=== PATIENT | female | born 1955 | race Caucasian/White ===

== ENCOUNTER 2023-05-16 10:58 | Inpatient (IN) | payer MEDICARE, MEDICAID ==
[~2023-05-16] VITALS: Ht 167.6 cm; Wt 73.8 kg
[~2023-05-16 10:58] MED LIST: ATENOLOL50 MG PO; CEPACOL SORE T1 EAC5 MM; GUAIFENESIN ER600 MG PO; HYDROCODON-ACE1 EAC8 PO; LEVOTHYROXINE112 MCG PO; LIPITOR40 MG PO; LOSARTAN-HCTZ1 EAC2 PO; MACROBID 100 M100 MG PO; PERCOCET 5-3251 EACH PO; SEROQUEL50 MG PO; TERBINAFINE15 GM TOP; TUSSIN COU15 MG/5 ML PO; TYLENOL325 MG PO; ZOFRAN ODT4 MG SL
[2023-05-16] MEDS ORDERED: ATENOLOL25 MG PO (11:28)
[2023-05-16 14:48] VITALS: BP 105/68
[2023-05-16 16:04] VITALS: BP 108/62
[2023-05-16 17:00] VITALS: BP 118/104
[2023-05-16 18:00] VITALS: BP 103/60
[2023-05-16 19:00] VITALS: BP 88/68
[2023-05-16 20:00] VITALS: BP 99/62
--- NOTE | 2023-05-16 22:14 | EKG ---
[facility] [address] [facility] [place] [address] Signed Normal sinus rhythm Nonspecific ST and T wave abnormality Abnormal ECG When compared with ECG of 24-JUN-2019 13:54, Nonspecific T wave abnormality no longer evident in Anterior leads QT has shortened Confirmed by Teddy Nogueira MD () on 05/16/2023 10:13:53 PM Electronically Signed By: TEDDY NOGUEIRA MD 05/16/23 2214 PATIENT NAME: MARI BAKER Electrocardiogram DATE OF : 53 PHYSICIAN: TEDDY NOGUEIRA MD REPORT #: [id number] REPORT IS CONFIDENTIAL AND NOT TO BE RELEASED WITHOUT AUTHORIZATION
[2023-05-17] VITALS (7 sets, daily range): BP systolic 80–102; BP diastolic 53–61
--- NOTE | 2023-05-17 05:29 | CONS ---
[facility] [address] [place], [place] [address] Signed DATE OF CONSULTATION: 05/16/2023 CHIEF COMPLAINT: Right groin pain. HISTORY OF PRESENT ILLNESS: Nitza is a 67-year-old female, who has been smoking at least half a pack of cigarettes a day for 40 years. She quit drinking heavily a couple years ago. She is a now and has one daughter. She still lives in her apartment and is able to drive. She had undergone a full hysterectomy last July and suspension of her bladder with good success. This last week, she was out pulling weeds and felt an increase in pain and swelling in mass that she has in her right groin. She has been now vomiting for a week. She had been to her primary care provider. She had downplayed the symptoms. Fortunately, a CT scan had been ordered. She does have the abdominal aortic aneurysm at 4.9 x 4.7 cm. She tells me she is aware of that, but has not seen a vascular surgeon. She also has a right femoral hernia containing small bowel with a small bowel obstruction. She also has a large hiatal hernia. The last 2 days, she has continued to have nausea and vomiting. She finally came to emergency room for evaluation. In the emergency room, she is not systemically ill or toxic. She certainly has an incarcerated mildly tender right femoral hernia. Her abdomen is moderately distended. White count is up at 11.7 and her sodium is low at 127 and her BUN and creatinine are elevated consistent with her acute renal failure. I have been called with respect to the above. An NG tube has been replaced with return of mostly clear gastric fluid. Horan catheter was inserted with return of small amount of clear yellow urine. She is receiving her second liter of IV fluids. Overall, she feels a little better. Her grand-daughter is with her. I have been asked to come see her here in the emergency room as a general surgeon on-call. PAST MEDICAL HISTORY: Osteoarthritis, hypertension, hypothyroidism, hyperlipidemia, depression, large hiatal hernia, and a right femoral hernia for at least 3 years if not more. PAST SURGICAL HISTORY: Includes a tonsillectomy, breast biopsy, and a full hysterectomy with bladder suspension in July 2022 with the [facility] at [facility] in [place], [place]. SOCIAL HISTORY: She has been smoking at least half pack of cigarettes a day for last 40 years. She quit drinking heavily about 2 years ago. She is now , but has one daughter. She lives in her apartment. She still drives. She is a full code, which we discussed at length. Her daughter is Helen at [phone]. Her grand-daughter is with her today. She prefers [facility]. Teresita Garcia is her nurse practitioner and Dr. Whitney Amaya is her green meat packer. Electronically Signed By: OLIVER CORBIN MD 05/17/23 0529 PATIENT NAME: NITZA BAKER CONSULTATION DATE OF : 53 REPORT #: [id number] PHYSICIAN: OLIVER CORBIN MD PCP: TERESITA GARCIA NP REPORT IS CONFIDENTIAL AND NOT TO BE RELEASED WITHOUT AUTHORIZATION [address] [address] Signed FAMILY HISTORY: None. REVIEW OF SYSTEMS: She had 10 systems reviewed and there is nothing new to add. ALLERGIES: Sulfa. MEDICATIONS: Atorvastatin 40 mg p.o. daily, levothyroxine 112 mcg p.o. daily, Seroquel 50 mg p.o. daily, and atenolol 25 mg p.o. daily. PHYSICAL EXAMINATION: VITAL SIGNS: Her blood pressure is 100/61, heart rate 62, respiratory rate 15, temperature is 97.8, she is 94% on room air, she is 5 feet 6 inches and 68 kg with a body mass index of 24. GENERAL: Nitza is a 67-year-old female, who is lying supine semi-recumbent in her ER bed with her grand-daughter at the bedside. She appears older than her stated age. She is clearly a long-time smoker. Her voice is little bit hoarse and raspy. She does not appear systemically ill or toxic. LUNGS: Her lungs are generally clear to auscultation bilaterally. HEART: Regular rate and rhythm without murmurs. ABDOMEN: Mild to moderately distended and mild to moderately firm without any peritoneal signs or symptoms. I can feel the incarcerated right femoral hernia. It is slightly tender, but no overlying skin changes. LABORATORY DATA: Her white blood cell count is 11.7, hemoglobin 13, neutrophils 55. Sodium is 127, potassium 4.0, CO2 is 20, BUN 140, creatinine 5.1, glucose 119. Liver function tests are negative. Albumin is 3.0. EKG is pending. RADIOGRAPHIC STUDIES: The chest x-ray shows the NG tube in the stomach with dilated loops of small bowel. An echocardiogram on January 12, 2023, showed a left ventricular ejection fraction of 65% to 70%. The CT scan of abdomen and pelvis on 05/14/2023 shows the abdominal aortic aneurysm at 4.9 x 4.7 cm with right femoral hernia containing small bowel resulting in a small bowel obstruction with dilated loops of small bowel. She has a large hiatal hernia. ASSESSMENT AND PLAN: Nitza is a 67-year-old female, who presents with an incarcerated right femoral hernia resulting in a small bowel obstruction. She has had nausea and vomiting for a week. Electronically Signed By: OLIVER CORBIN MD 05/17/23 0529 PATIENT NAME: NITZA BAKER CONSULTATION DATE OF : 53 REPORT #: [id number] PHYSICIAN: OLIVER CORBIN MD PCP: TERESITA GARCIA NP REPORT IS CONFIDENTIAL AND NOT TO BE RELEASED WITHOUT AUTHORIZATION [facility] [address] [place], [place] [address] Signed She is now hyponatremic with significant acute renal failure. We are going to admit her to the ICU and consult our hospital service. She is to undergo fluid resuscitation, repeat labs, and we will likely do her surgery tomorrow or the next day depending on how things go. I reviewed all this with Nitza and her grand-daughter in great detail. I gave them a brochure on hernias and I circled the sections relevant to the femoral hernias. I reviewed that at length. She understands the nature of the surgery along with its risks including, but not limited to bleeding, infection, scarring, change in contour of the skin, damage to bowel, infection of mesh requiring removal, recurrent hernias, chronic pain, anastomotic leak, and other unforeseen comorbidities. She has expressed understanding, agrees to above plan. Oliver Corbin MD ALB/CHIARAL /[id number] cc: UZIEL Main MD Jade Ward, MD Copies: OLIVER CORBIN MD ~ Electronically Signed By: OLIVER CORBIN MD 05/17/23 0529 PATIENT NAME: NITZA BAKER CONSULTATION DATE OF : 53 REPORT #: [id number] PHYSICIAN: OLIVER CORBIN MD PCP: TERESITA GARCIA NP REPORT IS CONFIDENTIAL AND NOT TO BE RELEASED WITHOUT AUTHORIZATION
[2023-05-17] MEDS ORDERED: ATENOLOL50 MG PO (09:55)
[2023-05-17] MEDS ORDERED: ATORVASTATIN CA80 MG PO (09:55)
[2023-05-17] MEDS ORDERED: SPIRONOLACTONE25 MG PO (09:56)
[2023-05-17] MEDS ORDERED: LISINOPRIL-HCT1 EACH PO (09:56)
[2023-05-17] MEDS ORDERED: LEVOTHYROXINE125 MCG PO (09:56)
[2023-05-17] MEDS ORDERED: OMEGA 3 1,0001 EACH PO (11:35)
[2023-05-17] MEDS ORDERED: NIACIN500 M1 PO (11:35)
[2023-05-17] MEDS ORDERED: VITAMIN D325 MCG PO (11:35)
[2023-05-18] VITALS (9 sets, daily range): BP systolic 90–126; BP diastolic 47–92
[2023-05-19] VITALS (8 sets, daily range): BP systolic 105–142; BP diastolic 57–85
--- NOTE | 2023-05-19 05:14 | OR ---
[facility] [address] [place], [place] [address] Signed DATE OF OPERATION: 05/18/2023 SURGEON: Oliver Corbin MD PREOPERATIVE DIAGNOSIS: Incarcerated right femoral hernia with small bowel obstruction. POSTOPERATIVE DIAGNOSIS: Incarcerated right femoral hernia with small bowel obstruction. PROCEDURE: Right femoral Rajesh Meek ligament hernia repair with mesh (prolonged and difficult at almost 2 hours and two nurses). ESTIMATED BLOOD LOSS: None. FINDINGS: Nitza had a classic incarcerated right femoral hernia with a knuckle of small intestine involving the hernia canal resulting in her small bowel obstruction. INDICATIONS: Nitza is a 67-year-old female, who thinks she has had her right femoral hernia at least three years if not longer. Unfortunately, she was never referred to have it repaired. She went through a hysterectomy and bladder suspension in July 2022. A week prior to admission, she was out pulling weeds in her yard. She noticed increased swelling and pain associated with that hernia in her right groin. She then had nausea and vomiting. She went to her primary care provider. Laboratory work was ordered along with a CT scan of abdomen and pelvis. The CT demonstrated her right femoral hernia resulting in a small-bowel obstruction. Unfortunately, the radiologist did not call the primary care provider. Two days later, Nitza came to our emergency room with ongoing nausea, vomiting, and dehydration. In the emergency room, she clearly has an incarcerated right femoral hernia without any overlying skin changes. Her white count was borderline at 11.7. However, her BUN was up at 140 and creatinine up at 5.1 with a sodium down at 127 with mild acidosis with a bicarb of 20. An NG tube was in place along with a Horan catheter. She was given a couple L of IV fluid. I had seen her in the emergency room. She looked surprisingly well given what she has been through. We admitted her to our ICU with consult through our hospitalist Service. Ongoing fluid resuscitation. Her BUN and creatinine almost normalized. We corrected the sodium along with the potassium and her magnesium and phosphorus levels. She has had very little out the NG to but increase Electronically Signed By: OLIVER CORBIN MD 05/19/23 0514 PATIENT NAME: NITZA BAKER OPERATIVE REPORT DATE OF : 53 REPORT #: [id number] PHYSICIAN: OLIVER CORBIN MD PCP: LLOYD GARCIA NP REPORT IS CONFIDENTIAL AND NOT TO BE RELEASED WITHOUT AUTHORIZATION [facility] [address] [place], [place] [address] Signed urine output which is now very light yellow. She looks and feels much better. I can see her skin is much more hydrated. Her mouth is much more moist. Overall, she feels much better. Initially, her granddaughter was with her. We had a long discussion regarding her current findings. I brought a brochure from the office on hernias. I went over the sections relevant to the femoral hernias. We had discussed that in detail actually in the last couple of days. She was quite aware of the groin incision required repair of these hernias. She understands these are a little more involved than a standard inguinal hernia. She also understands if the knuckle of small bowel is not viable, it may need to be resected. There is risk to the surgery including, but not limited to bleeding, infection, scarring, change in contour of the skin, damage to nerves, recurrent hernias and chronic pain. She also understands there is a small bowel resection. She has a risk of anastomotic leak as well. She understand she will be in the hospital a few days following the surgery as the small bowel obstruction resolves. She had expressed understanding and wished to proceed. DESCRIPTION OF PROCEDURE: I met with Nitza in our preop area. We both agreed on the right groin and we marked that appropriately with the preop nurse present. After this, she was taken in the operating room and placed in the supine position under general endotracheal tube anesthesia. She was already on preoperative antibiotics along with subcutaneous Lovenox. SCDs have been in place. Her NG tube in her Horan catheter was left in place. She was prepped and draped in the usual sterile fashion. We made a standard oblique incision over the right groin and carried it down through the tissues bluntly and with the cautery. We opened up the external oblique fascia along its length and developed medially and laterally. We then went below the inguinal ligament and opened the fat over the hernia and opened up the very thickened hernia sac. We finally encountered the small bowel which was a little erythematous but appeared to be viable otherwise. We did bump the serosa just a bit with the cautery, so we over sewed that with several interrupted 3-0 Vicryl sutures. We freed up the hernia sac from the surrounding tissues and excised the redundant thickened inflamed hernia sac and passed it off the field. We were able to reduce the small bowel back into the abdomen. We then reduced the proximal portion of hernia sac back underneath the inguinal ligament. We could easily see inside the abdomen with some clear abdominal fluid. We used an 0 Vicryl pursestring suture to close the neck of that hernia sac and we trimmed that thickened inflamed hernia sac right back close to the 0 Vicryl suture. We also discovered that she had just a small indirect inguinal hernia as well coming through the deep ring. We had initially divided the round ligament at the level of pubic tubercle. We then took it all the way back to the deep ring. We went ahead and divided that deeper in with the help of oh Vicryl suture. Full we could easily see the inferior epigastric artery and vein. The area was irrigated and suctioned out until clear. We then used our standard rectangular Prolene mesh to proceed with a Rajesh Meek ligament repair. We used 0 Prolene suture to bring the mesh down to the Meek's ligament with three stitches. We trimmed the medial Electronically Signed By: OLIVER CORBIN MD 05/19/23 0514 PATIENT NAME: NITZA BAKER OPERATIVE REPORT DATE OF : 53 REPORT #: [id number] PHYSICIAN: OLIVER CORBIN MD PCP: LLOYD GARCIA NP REPORT IS CONFIDENTIAL AND NOT TO BE RELEASED WITHOUT AUTHORIZATION [facility] [address] [place] [id number] Signed corner of the mesh inferior and superiorly in a semicircular fashion so we would go underneath the transversalis in the preperitoneal space. We transitioned our stitch along the medial side of the femoral vein, and we took several bites of that soft tissue to bring up close to the mesh to help hold it in place. The mesh was then transitioned up to the inguinal ligament and we continued with our running Prolene suture, although just passed the deep ring and tied that in place. That allowed us to then roll the mesh underneath the transversalis in the preperitoneal space the level of the deep ring. We then closed the transversalis with the help of a running 2-[address] the way from the pubic tubercle up to the deep ring which completely covers the mesh. We then passed our finger from below the inguinal ligament up to the repair and it with was securing. There were no gaps. We then closed the subcutaneous tissues below the inguinal ligament several layers with oh Vicryl suture to help decrease that space from the hernia. We then injected local anesthetic in the wound. The external oblique fascia was then closed over the repair with a running 2-0 PDS suture with just a small opening at the size of the tip of the index finger near the pubic tubercle to allow for an external ring and for drainage as well. The Chrissy's fascia was then reapproximated with a running 3-0 Monocryl suture. The dermis was reapproximated with interrupted 3-0 subcuticular Monocryl sutures. The skin was reapproximated with a running 5-0 fast absorbing plain gut suture. Dry gauze and tape were then applied. Nitza was awakened from her anesthesia, extubated in the OR, and taken to the ICU in stable condition. . Oliver Corbin MD ALB/MODL /[id number] cc: DO Oliver Stone MD Ashley Christensen,, [employer] LEADER Copies: ENID MERCADO ([place]) Electronically Signed By: OLIVER CORBIN MD 05/19/23 0514 PATIENT NAME: NITZA BAKER OPERATIVE REPORT DATE OF : 53 REPORT #: [id number] PHYSICIAN: OLIVER CORBIN MD PCP: LLOYD GARCIA NP REPORT IS CONFIDENTIAL AND NOT TO BE RELEASED WITHOUT AUTHORIZATION [facility] [address] [place] [address] Signed OLIVER CORBIN MD ~ Electronically Signed By: OLIVER CORBIN MD 05/19/23 0514 PATIENT NAME: NITZA BAKER OPERATIVE REPORT DATE OF : 53 REPORT #: [id number] PHYSICIAN: OLIVER CORBIN MD PCP: LLOYD GARCIA NP REPORT IS CONFIDENTIAL AND NOT TO BE RELEASED WITHOUT AUTHORIZATION
[2023-05-20 05:05] VITALS: BP 127/66
[2023-05-20 09:06] VITALS: BP 133/68
[2023-05-20 13:57] VITALS: BP 114/90
[2023-05-20 18:10] VITALS: BP 139/74
[2023-05-20 20:44] VITALS: BP 153/86
[2023-05-20 23:50] VITALS: BP 148/80
[2023-05-21 05:03] VITALS: BP 144/78
--- NOTE | 2023-05-21 07:25 | DS ---
[facility] [address] [place], [place] [address] Signed ADMISSION DATE: 05/16/2023 DISCHARGE DATE: 05/21/2023 FINAL DIAGNOSES: 1. Incarcerated right femoral hernia with small bowel obstruction. 2. Anemia. 3. Hypomagnesemia. 4. Hypophosphatemia. 5. Abdominal aortic aneurysm (4.9 x 4.7 cm). PROCEDURES: 1. Repair right femoral hernia with mesh. 2. CT scan of abdomen and pelvis. 3. Chest x-ray. HISTORY OF PRESENT ILLNESS: Nitza is a 67-year-old female, who has been a long-time smoker and is moderately frail and looks older than her stated age. She has known about her right femoral hernia for several years. She had been out in the yard pulling weeds about a week ago prior to admission. She had increased pain and swelling in the right groin. This was followed by nausea and vomiting. She had gone to her primary care provider. Laboratory work and a CT scan was ordered. CT scan showed her abdominal aortic aneurysm at 4.9 x 4.7 cm. She apparently believes that is a new finding. She can follow it up with her primary care provider. She also had a right femoral hernia resulting in a small bowel obstruction as well as a large hiatal hernia. She ended up in the emergency room two days later with ongoing nausea and vomiting. She was very dehydrated at that point. She had acute renal failure as well. I had been asked to admit her to my service. HOSPITAL COURSE: Nitza was admitted as above to the ICU and I asked our hospitalist service to see her as well. She had an NG tube and Horan catheter and IV fluids and we were able to correct her electrolytes and get her out of renal failure. She went to surgery on 05/18/2023, and I repaired her right femoral hernia with mesh using the Rajesh technique. Just one part of her intestine was a bit from the hernia. We thought that would probably heal on its own. Therefore, it was reduced into the abdomen. We did not have to resect any bowel. I have reviewed that with Nitza in detail. It took her just a few days then to resolve the bowel obstruction, but she has done quite excellent. She is now tolerating her full liquid diet with multiple bowel movements. She is completely out of renal failure. She has been anemic and that is quite consistent. Her magnesium and phosphorus have been running low and we are replacing that as well. She told me she has an apartment and she is going to have a friend stay with her for a few days until Electronically Signed By: OLIVER CORBIN MD 05/21/23 0725 PATIENT NAME: NITZA BAKER DISCHARGE SUMMARY DATE OF : 53 REPORT #: [id number] PHYSICIAN: OLIVER CORBIN MD PCP: TERESITA GARCIA NP REPORT IS CONFIDENTIAL AND NOT TO BE RELEASED WITHOUT AUTHORIZATION [facility] [address] [place] [address] Signed she is feeling better. Her incision is healing very well and the abdomen is completely benign. DISCHARGE PLANS AND MEDICATIONS: Nitza is going to be discharged to home with a prescription for Troy 5/325 one tablet p.o. q.6 hours p.r.n. for severe postoperative pain, dispense 20 tablets with no refills. We will give her potassium phosphorus packets two packets p.o. b.i.d. with meals. We will dispense 56 packets with no refills. We will dispense magnesium oxide 400 mg one p.o. b.i.d., dispense 28 tablets with no refills. She can use Tylenol or ibuprofen as needed for [id number] postoperative pain. She can purchase that [id number]. She can resume all her chronic medications at home as we have for her here in the hospital. She is welcome to perform her activities of daily living including walking up and down stairs and showering and bathing as usual. She should not do any heavy pushing, pulling, or lifting over about 10 pounds. She will leave the incision open to air. She can use ice p.r.n. She can drive when she is off the narcotics. I will see her back in my office in 7 to 14 days to review her surgical followup. She will need to see her primary care provider here in the weeks ahead and review the fact that she has low phosphorus and magnesium as well as her anemia and her abdominal aortic aneurysm. She has expressed understanding and agrees with the above plan. MD KEVIN Wilkinson/YARELIS /[id number] cc: DO Dr. Teresita Stone MD Copies: ENID MERCADO ([place]) Electronically Signed By: OLIVER CORBIN MD 05/21/23 0725 PATIENT NAME: NITZA BAKER DISCHARGE SUMMARY DATE OF : 53 REPORT #: [id number] PHYSICIAN: OLIVER CORBIN MD PCP: TERESITA GARCIA NP REPORT IS CONFIDENTIAL AND NOT TO BE RELEASED WITHOUT AUTHORIZATION [address] [address] Signed OLIVER CORBIN MD ~ Electronically Signed By: OLIVER CORBIN MD 05/21/23 0725 PATIENT NAME: NITZA BAKER DISCHARGE SUMMARY DATE OF : 53 REPORT #: [id number] PHYSICIAN: OLIVER CORBIN MD PCP: TERESITA GARCIA NP REPORT IS CONFIDENTIAL AND NOT TO BE RELEASED WITHOUT AUTHORIZATION
[2023-05-21 09:14] VITALS: BP 126/66
[2023-05-21] MEDS ORDERED: PHOS-NAK PACKE1 EACH PO (09:17)
[2023-05-21] MEDS ORDERED: MAGOX 400400 MG PO (09:17)
[2023-05-21] MEDS ORDERED: HYDROCODON-ACE1 EA10 PO (09:18)
[2023-05-21 14:00] VITALS: BP 127/67
== END 2023-05-21 15:54 | disposition home or self-care (01) | DRG 351 ==
LOC: ED 10:58 → CCU 13:47 → MS 05-19 13:35
PROVIDERS: ADMIT Colon & Rectal Surgery; ATTEND Colon & Rectal Surgery
PROC: 0YU50JZ Supplement Right Inguinal Region with Synthetic Substitute, Open Approach (ICD-10-PCS; principal; 2023-05-18 10:00)
DX: K40.30 Unilateral inguinal hernia, with obstruction, without gangrene, not specified as recurrent (principal); E87.1 Hypo-osmolality and hyponatremia; N17.9 Acute kidney failure, unspecified; I12.9 Hypertensive chronic kidney disease with stage 1 through stage 4 chronic kidney disease, or unspecified chronic kidney disease; E87.6 Hypokalemia; N18.9 Chronic kidney disease, unspecified; E03.9 Hypothyroidism, unspecified; E83.39 Other disorders of phosphorus metabolism; E78.5 Hyperlipidemia, unspecified; I71.40 Abdominal aortic aneurysm, without rupture, unspecified; F17.210 Nicotine dependence, cigarettes, uncomplicated; D64.9 Anemia, unspecified; F32.A Depression, unspecified; M19.90 Unspecified osteoarthritis, unspecified site; Z90.89 Acquired absence of other organs; Z98.890 Other specified postprocedural states; Z88.2 Allergy status to sulfonamides; Z79.890 Hormone replacement therapy; Z79.899 Other long term (current) drug therapy
CPT/HCPCS: 00830; 36415; 71045; 80048; 80053; 83605; 83735; 84100; 85025; 93005; 93010; A9270; C1781; C9113; J0330; J0696; J0780; J1100; J1170; J1650; J2405; J2704; J3010; J3475; J3480; J3490; J7030; J7042; J7060; J7070; J7121